=== PATIENT | female | born 2000 | race American Indian/Alaskan Native ===

== ENCOUNTER 2019-04-27 20:06 | Emergency (ER) | payer OTHER ==
[2019-04-27 20:22] VITALS: BP 131/85
--- NOTE | 2019-04-27 21:37 | Emergency Department Report ---
Chief Complaint: Upper Respiratory Infection Stated Complaint: HEADACHE,CHILLS,SORE THROAT GENERAL COLD Time Seen by Provider: 04/27/19 21:31 - HPI History of Present Illness: This is a 18 y.o. F. that presents to the ER with cough, sore throat, fever, chills, and myalgia for 3 days. PMH of asthma OTC cold and flu meds and albuterol. Denies SOB, chest pain, wheezing, abdominal pain, nausea, vomiting, or diarrhea. - ROS Review of Systems: ROS: Stated complaint: sore throat, chills, fever, and myalgia Other details as noted in HPI Comment: All other systems reviewed and negative - Exam Vital Signs: Vital Signs 04/27/19 20:20 Temperature 98.6 F Pulse Rate 104 H Respiratory 18 Rate Blood Pressure 131/85 O2 Sat by Pulse 97 Oximetry Vital Signs 04/27/19 04/27/19 20:20 21:35 Temperature 98.6 F Pulse Rate 104 H 93 H Respiratory 18 Rate Blood Pressure 131/85 131/85 O2 Sat by Pulse 97 Oximetry Physical Exam: - General Limitations: No Limitations General appearance: alert, in no apparent distress, obese - Head Head exam: Present: atraumatic, normocephalic - Eye Eye exam: Present: normal appearance - ENT ENT exam: Present: erythematous and enlarged tonsils w/o exudate, uvula midline w/o swelling, mucous membranes moist, turbinates congested with clear discharge - Neck Neck exam: Present: normal inspection, full ROM. Absent: lymphadenopathy - Respiratory Respiratory exam: Present: normal lung sounds bilaterally. Absent: respiratory distress - Cardiovascular Cardiovascular Exam: Present: regular rate, normal rhythm. Absent: systolic murmur, diastolic murmur, rubs, gallop - GI/Abdominal GI/Abdominal exam: Present: soft, normal bowel sounds - Extremities Exam Extremities exam: Present: normal inspection - Back Exam Back exam: Present: normal inspection - Neurological Exam Neurological exam: Present: alert, oriented X3 - Psychiatric Psychiatric exam: Present: normal affect, normal mood - Skin Skin exam: Present: warm, dry, intact, normal color. Absent: rash MSE screening note: Focused history and physical exam performed. Due to findings the following was ordered: ED Medical Decision Making - Medical Decision Making This is a 18 y.o. female that presents with sore throat for 3 days. Patient examined by me and stable. No distress noted. Vitals stable. Centor positive for strep throat. Start antibiotics, steroids, and analgesics. Take Tylenol or ibuprofen for pain. Discussed plan with patient and he agreed with plan to treat outpatient. Discharged home stable with strict return instructions. Return to work tomorrow. Follow up with PCP in 48-72 hours. ED Disposition for MSE Clinical Impression: Acute sore throat Pharyngitis Qualifiers: Pharyngitis/tonsillitis etiology: unspecified etiology Qualified Code(s): J02.9 - Acute pharyngitis, unspecified Disposition: TO HOME OR SELFCARE Is pt being admited?: No Condition: Stable Instructions: Pharyngitis (ED) Prescriptions: Benzocaine/Menthol [Cepacol Sore Throat Lozenge] 1 each MM Q2H PRN #20 lozenge PRN Reason: Sore Throat methylPREDNISolone [Medrol 4MG DOSEPAK (21 tabs)] 4 mg PO DAILY #1 tab.ds.pk Amoxicillin [Trimox CAP] 500 mg PO BID #20 capsule Referrals: [facility] [place] [Outside] - 3-5 Days [facility] [Outside] - 3-5 Days [facility] [Outside] - 3-5 Days SHENA OCONNELL MD [Staff Physician] - 3-5 Days Forms: Work/School Release Form(ED) Time of Disposition: 21:41
== END 2019-04-28 | disposition home or self-care (01) ==
LOC: ED 20:06
DX: J02.9 Acute pharyngitis, unspecified (principal); R50.9 Fever, unspecified; M79.10 Myalgia, unspecified site; J45.909 Unspecified asthma, uncomplicated
CPT/HCPCS: 99282